=== PATIENT | female | born 1945 | race Caucasian/White ===

== ENCOUNTER → 2018-03-07 | Outpatient (REF) | payer MEDICARE, OTHER, MEDICAID, SELFPAY | LOC: LAB 16:03 | PROVIDERS: PCP Internal Medicine; Visit Provider Internal Medicine | DX: I48.91 Unspecified atrial fibrillation (principal) | CPT/HCPCS: 85610 ==

== ENCOUNTER → 2018-03-31 14:54 | Outpatient (REF) | payer MEDICARE, MEDICAID, OTHER, SELFPAY ==
[2018-03-31 15:15] LABS: Prothrombin Time 21.4 SECONDS (10.1-12.7)
== END ==
LOC: LAB 14:54
PROVIDERS: PCP Internal Medicine; Visit Provider Internal Medicine
DX: I48.91 Unspecified atrial fibrillation (principal)
CPT/HCPCS: 85610

== ENCOUNTER → 2018-04-09 07:10 | Outpatient (REF) | payer MEDICARE, MEDICAID, SELFPAY ==
[2018-04-09 08:26] LABS: INR 3.4 (0.9-1.3); Prothrombin Time 36.8 SECONDS (10.1-12.7)
== END ==
LOC: LAB 07:10
PROVIDERS: PCP Internal Medicine; Visit Provider Nurse Practitioner Family
DX: I48.91 Unspecified atrial fibrillation (principal)
CPT/HCPCS: 36415; 85610

== ENCOUNTER → 2018-04-14 07:19 | Outpatient (REF) | payer MEDICARE, MEDICAID, SELFPAY ==
[2018-04-14 07:47] LABS: Prothrombin Time 22.1 SECONDS (10.1-12.7)
== END ==
LOC: LAB 07:19
PROVIDERS: PCP Internal Medicine; Visit Provider Internal Medicine
DX: I48.91 Unspecified atrial fibrillation (principal)
CPT/HCPCS: 36415; 85610

== ENCOUNTER → 2018-04-27 08:16 | Outpatient (CLI) | payer MEDICARE, MEDICAID, SELFPAY ==
--- NOTE | 2018-04-27 | DI.US.S_ITS ---
PROCEDURE: US SOFT TISSUE HEAD AND NECK INDICATIONS: left back of shoulder posterior lump TECHNIQUE: Real-time scanning was performed of the neck region of interest, with image documentation. COMPARISON: None. FINDINGS: Targeted sonographic imaging of the site of the patient's palpable abnormality was performed, which is noted to be along the posterior aspect of the the left neck near the base of the neck. The patient palpable abnormality correlates with a subcutaneous lesion that appears to be relatively well circumscribed and noted to be somewhat hypoechoic or isoechoic to the adjacent subcutaneous fat. This structure measures 5.3 x 1.2 x 3.6 cm and does not demonstrate internal vascularity. No drainable or loculated fluid collections are evident. No soft tissue components are identified demonstrating increased blood flow. No enlarged lymph nodes are evident. IMPRESSION: Patient palpable abnormality corresponds with a moderate-sized lipomatous lesion along the left posterior aspect of the left neck, suggestive of a benign lipoma. If this structure is increasing in size, please consider contrast enhanced CT of the neck for better characterization. Dictated by: Gera Rawls M.D. on 04/27/2018 at 9:05 Approved by: Gera Rawls M.D. on 04/27/2018 at 9:09
== END ==
PROVIDERS: PCP Internal Medicine; Visit Provider Nurse Practitioner Family
DX: D17.0 Benign lipomatous neoplasm of skin and subcutaneous tissue of head, face and neck (principal)
CPT/HCPCS: 76536

== ENCOUNTER → 2018-05-12 07:55 | Outpatient (REF) | payer MEDICARE, MEDICAID, SELFPAY ==
[2018-05-12 08:46] LABS: INR 3.2 (0.9-1.3); Prothrombin Time 34.6 SECONDS (10.1-12.7)
== END ==
LOC: LAB 07:55
PROVIDERS: PCP Internal Medicine; Visit Provider Nurse Practitioner Family
DX: I48.91 Unspecified atrial fibrillation (principal)
CPT/HCPCS: 36415; 85610

== ENCOUNTER → 2018-05-21 07:21 | Outpatient (REF) | payer MEDICARE, MEDICAID, SELFPAY ==
[2018-05-21 08:05] LABS: INR 2.1 (0.9-1.3)
== END ==
LOC: LAB 07:21
PROVIDERS: PCP Internal Medicine; Visit Provider Internal Medicine
DX: I48.91 Unspecified atrial fibrillation (principal)
CPT/HCPCS: 36415; 85610

== ENCOUNTER → 2018-06-17 08:22 | Outpatient (REF) | payer MEDICARE, MEDICAID, SELFPAY ==
[2018-06-17 09:31] LABS: INR 1.3 (0.9-1.3); Prothrombin Time 14.4 SECONDS (10.1-12.7)
== END ==
LOC: LAB 08:22
PROVIDERS: PCP Internal Medicine; Visit Provider Nurse Practitioner Family
DX: Z51.81 Encounter for therapeutic drug level monitoring (principal)
CPT/HCPCS: 36415; 85610

== ENCOUNTER → 2018-06-24 08:40 | Outpatient (REF) | payer MEDICARE, MEDICAID, SELFPAY ==
[2018-06-24 10:53] LABS: INR 3.3 (0.9-1.3)
== END ==
LOC: LAB 08:40
PROVIDERS: PCP Internal Medicine; Visit Provider Nurse Practitioner Family
DX: Z51.81 Encounter for therapeutic drug level monitoring (principal)
CPT/HCPCS: 36415; 85610

== ENCOUNTER → 2018-07-01 08:01 | Outpatient (REF) | payer MEDICARE, MEDICAID, SELFPAY ==
[2018-07-01 08:42] LABS: INR 3.4 (0.9-1.3); Prothrombin Time 37.6 SECONDS (10.1-12.7)
== END ==
LOC: LAB 08:01
PROVIDERS: PCP Internal Medicine; Visit Provider Nurse Practitioner Family
DX: I48.91 Unspecified atrial fibrillation (principal)
CPT/HCPCS: 36415; 85610

== ENCOUNTER → 2018-07-08 07:31 | Outpatient (REF) | payer MEDICARE, MEDICAID, SELFPAY ==
[2018-07-08 07:51] LABS: INR 1.2 (0.9-1.3); Prothrombin Time 13.4 SECONDS (10.1-12.7)
== END ==
LOC: LAB 07:31
PROVIDERS: PCP Internal Medicine; Visit Provider Nurse Practitioner Family
DX: Z51.81 Encounter for therapeutic drug level monitoring (principal)
CPT/HCPCS: 36415; 85610

== ENCOUNTER → 2018-07-15 09:46 | Outpatient (REF) | payer MEDICARE, MEDICAID, SELFPAY ==
[2018-07-15 10:05] LABS: INR 1.2 (0.9-1.3); Prothrombin Time 12.8 SECONDS (10.1-12.7)
== END ==
LOC: LAB 09:46
PROVIDERS: PCP Internal Medicine; Visit Provider Nurse Practitioner Family
DX: Z79.01 Long term (current) use of anticoagulants (principal); Z92.29 Personal history of other drug therapy
CPT/HCPCS: 36415; 85610

== ENCOUNTER → 2018-07-22 10:36 | Outpatient (REF) | payer MEDICARE, MEDICAID, SELFPAY ==
[2018-07-22 13:59] LABS: INR 1.2 (0.9-1.3); Prothrombin Time 13.1 SECONDS (10.1-12.7)
== END ==
LOC: LAB 10:36
PROVIDERS: PCP Internal Medicine; Visit Provider Nurse Practitioner Family
DX: Z51.81 Encounter for therapeutic drug level monitoring (principal)
CPT/HCPCS: 36415; 85610

== ENCOUNTER → 2018-07-29 08:53 | Outpatient (REF) | payer MEDICARE, MEDICAID, SELFPAY ==
[2018-07-29 09:46] LABS: INR 1.5 (0.9-1.3); Prothrombin Time 16.3 SECONDS (10.1-12.7)
== END ==
LOC: LAB 08:53
PROVIDERS: PCP Internal Medicine; Visit Provider Nurse Practitioner Family
DX: Z51.81 Encounter for therapeutic drug level monitoring (principal)
CPT/HCPCS: 36415; 85610